=== PATIENT | male | born 1985 | race Asian ===

== ENCOUNTER 2024-09-07 08:53 | Outpatient (REF) | payer OTHER, SELFPAY ==
[2024-09-07 14:21] LABS: Influenza A PCR NEGATIVE (Negative); Influenza B PCR NEGATIVE (Negative); Resp Syncy Virus RNA Qual PCR NEGATIVE (Negative); SARS COV2 PCR INHOUSE NEGATIVE (Negative)
== END 2024-09-07 08:54 | disposition home or self-care (01) ==
LOC: HO.LAB 08:53
PROVIDERS: Visit Provider Nurse Practitioner Family
DX: J06.9 Acute upper respiratory infection, unspecified (principal)
CPT/HCPCS: 0241U

== ENCOUNTER 2024-09-07 08:53 | Outpatient (AMB) | payer OTHER, SELFPAY ==
--- NOTE | 2024-09-07 10:05 | MHC.OFFWIV ---
Intake Vital Signs 09/07/24 10:12 Weight 186 lb 8 oz BP 112/80 Blood Pressure Location Rt brachial Position Sitting Pulse 78 Pulse Source Pulse Oximeter Temp 98.0 F Temp Source Oral Pulse Oximetry (%) 98 Oxygen Delivery Method Room Air Intake Visit Reasons: EP-hermann.,cough,teeth pain,[id number] Intake Note: Patient here for cough, congestion and teeth pain that has been present for about 3 days. Patient Tobacco Use Status: Never used Tobacco Allergies No Known Allergies Allergy (Verified 09/07/24 10:06) Do you need a note to return to daycare/school/sports/work: No HPI HPI Comments History of Present Illness Details co39 y/o male patient who presents to the walk in clinic with c/o cough, fevers and body chills for 3 days now. Reports fever of 100.1 F at home Friday. His entire family sick with similar symptoms. [facility] Medical History (Updated 09/07/24 @ 10:27 by Esther Reynolds NP) Cough Acute respiratory disease Social History Patient Tobacco Use Status: Never used Tobacco Review of Systems Const All systems reviewed & are unremarkable except as noted in HPI and below Physical Exam Vital Signs: Last Vital Signs Temp 98.0 F 09/07/24 10:12 Pulse 78 09/07/24 10:12 BP 112/80 09/07/24 10:12 Pulse Ox 98 09/07/24 10:12 Oxygen Delivery Method Room Air 09/07/24 10:12 Const General: cooperative and no acute distress Nutritional Appearance: thin Orientation/consciousness: patient oriented x3 HEENT Head: Yes normocephalic Ears: external ears normal and TM abnormal with fluid behind the TM General nose exam: Normal external nose present and Nasal discharge present Face and sinus: Yes sinuses nontender Mouth: moist mucous membranes Throat: Yes tonsils normal and Yes uvula midline Resp Effort & Inspection: normal respiratory effort and able to speak in complete sentences Auscultation: clear to auscultation bilaterally, no crackles, no rales, no rhonchi and no wheezes Cardio Heart sounds: S1 normal heart sound present and S2 normal heart sound present Neuro General: patient oriented x3 Assessment & Plan Assessment & Plan (1) Acute respiratory disease: Code(s): J06.9 - Acute upper respiratory infection, unspecified Plan: Ordered SARs Acetaminophen for pain relief Hydrate and rest well OTC cold remedies RTC if not better. Orders: Orders SARS-CoV2/FLU/RSV Today J06.9 - Acute upper respiratory infection, unspecified Medications: New benzonatate 100 mg PO TID 60 caps 0RF J06.9 - Acute upper respiratory infection, unspecified, R05.9 - Cough, unspecified acetaminophen 1,000 mg (2 x 500 mg) PO Q6H PRN 30 caps 0RF pain J06.9 - Acute upper respiratory infection, unspecified Coding Level of Care Code New Pt Level 3 (09618) Diagnoses Acute respiratory disease J06.9 Time Spent (min) 15
[2024-09-07 10:12] VITALS: BP 112/80; PULSE 78; TEMP 36.7; O2SAT 98
== END 2024-09-07 10:46 | disposition home or self-care (01) ==
PROVIDERS: Visit Provider Nurse Practitioner Family
DX: J06.9 Acute upper respiratory infection, unspecified (principal)

== ENCOUNTER 2024-12-24 08:08 | Outpatient (AMB) | payer OTHER, SELFPAY ==
[2024-12-24 08:13] VITALS: BP 130/80; PULSE 90; TEMP 36.8; O2SAT 98
--- NOTE | 2024-12-24 08:13 | AM.OFFWIN_ITS ---
Intake Vital Signs 12/24/24 08:13 Weight 184 lb BP 130/80 Blood Pressure Location Rt brachial Position Sitting Pulse 90 Pulse Source Pulse Oximeter Temp 98.2 F Temp Source Oral Pulse Oximetry (%) 98 Oxygen Delivery Method Room Air Intake Visit Reasons: EP Flu+ friday, sinus pain Intake Note: Patient here for cough, sinus pain and congestion. pt states he tested positive for the flu on friday and was not prescribed tamiflu. Patient Tobacco Use Status: Never used Tobacco Allergies No Known Allergies Allergy (Verified 12/24/24 08:21) Do you need a note to return to daycare/school/sports/work: Yes HPI HPI Comments History of Present Illness Details History - The patient is a 39-year-old male pres enting with nasal congestion and cough. - Diagnosed with Flu A on 12/20 - Initial fever was self-resolving, repl aced by nasal congestion and productive cough. - Nasal discharge includes blood and bro wn mucus, indicative of drying nasal passages. - Sinus examination reveals mild headach e upon pressure application. - Notable absence of shortness of breath , asthma, COPD, or smoking or vaping history. - Continues to experience symptoms despi te initial nasal spray use; advised to use saline nasal spray for dryness. Physical Exam General: Cooperative, healthy appearing, comfortable and no acute distress Orientation/consciousness: Patient oriented x3 Limitations: No limitations Head: Normal to inspection Ears: Hearing grossly normal bilaterally, external ears normal and TM's normal bilaterally Nose: Normal external nose present, Normal nares present and Nasal discharge present, scant blood noted Face and sinus: Normal facial exam and Sinuses tender Mouth: Normal oral and palatal mucosa present and moist mucous membranes Throat: Yes tonsils normal, Yes uvula midline. Posterior oropharynx erythema Eyes: Appearance normal, both eyes and all related structures Neck: Normal visual inspection Respiratory: Clear to auscultation bilaterally. Normal respiratory effort, able to speak in complete sentences, Actively coughing, no respiratory distress, not tachypneic, no tripod positioning and no use of accessory muscles Cardiovascular: Regular rate and rhythm. Normal S1 and S2 Skin: No rashes or lesions noted Neuro: Patient oriented x3 Extremities: Normal to inspection and Yes no clubbing, cyanosis or edema PFSH Medical History (Updated 12/24/24 @ 08:40 by Angella Ocampo PA-C) Cough Acute respiratory disease Social History Patient Tobacco Use Status: Never used Tobacco Review of Systems Const All systems reviewed & are unremarkable except as noted in HPI and below Physical Exam Vital Signs: Last Vital Signs Temp 98.2 F 12/24/24 08:13 Pulse 90 12/24/24 08:13 BP 130/80 12/24/24 08:13 Pulse Ox 98 12/24/24 08:13 Oxygen Delivery Method Room Air 12/24/24 08:13 Assessment & Plan Assessment & Plan (1) Influenza A: Code(s): J10.1 - Influenza due to other identified influenza virus with other respiratory manifestations Plan: VSS, pt well appearing and PE unremarkable. Treatment included using saline nasal spray to alleviate nasal dryness. The incorporation of Sudafed and cons ideration of Flonase are recommended to manage nasal and sinus symptoms. Hydration and mucolytics like Mucinex may prove beneficial in reducing mucus buildup. Adjustments to nasal spray use are suggested to avoid excessive drying, and specific techniques for Flonase application aim to enhance effectiveness. Non-prescription medication like Tylenol and Ibuprofen is advised for pain and fever management. A humidifier usage and prescribed cough suppressants aim to improve symptoms, especially nocturnal discomfort. Patient was informed and verbally consented to the use of an ambient scribe for clinic note documentation during this visit Medications: New fluticasone propionate 50 mcg/actuation administer into each nostril 1 spray intranasal Q12H 16 grams 0RF benzonatate 200 mg PO BEDTIME PRN 10 caps 0RF cough Coding Level of Care Code Est Pt Level 3 (69487) Diagnoses Influenza A J10.1
--- OUTSIDE RECORDS SUMMARY | 2024-12-24 08:17 | XMS_ITS | Clinical Summary ---
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 Active ibuprofen (ADVIL,MOTRIN) 800 mg tablet Take 1 Tab by mouth every 8 hours as needed for Pain. 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 Dyspepsia 09/23/2012 Acne 10/11/2008 Immunizations Name Administration Dates Next Due Influenza trivalent, 0.5mL, preservative free (Fluarix; FluLaval; Fluzone) ages 6mo and older (Afluria) 3 years and older 09/10/2020,08/20/2017 Moderna SARS-CoV-2 COVID-19, mRNA, LNP-S, preservative free 03/05/2021,02/05/2021 Tdap Tetanus diptheria acell ular pertussis (Boostrix; Adacel) 7yo and older 01/13/2017 Surgical History Surgery Date Site/Laterality Comments OTHER SURGICAL HISTORY PROCEDURE: DENIES PREVIOUS SURGERY Family History Medical History Relation Name Comments No Known Problems Brother Hypertension Father Other: pancreatic cancer Father Other: good health Mother Heart attack Paternal Grandmother at age 50' Hypertension Paternal Grandmother Relation Name Status Comments Brother Alive Father Alive Maternal Grandfather Alive Maternal Grandmother (Age 86) Mother Alive Paternal Grandfather Alive cad, ca bg in 60 s Paternal Grandmother Social History Tobacco Use Types Packs/Day Years Used Date Smoking Tobacco: Never Smokeless Tobacco: Never Alcohol Use Standard Drinks/Week Comments Yes 1.7 (1 standard drink = 0.6 oz p ure alcohol) Sex and Gender Information Value Date Recorded Sex Assigned at Not on file Legal Sex Male 8:01 PM EST Gender Identity Not on file Sexual Orientation Not on file Obstetrics History Last Filed Vital Signs Vital Sign Reading Time Taken Comments Blood Pressure 110/60 06/11/2023 1:52 PM EDT Pulse 60 06/11/2023 1:52 PM EDT Temperature - - Respiratory Rate - - Oxygen Saturation - - Inhaled Oxygen Concentration - - Weight 83.3 kg (183 lb 9.6 oz) 06/11/2023 1:52 P M EDT Height 198.1 cm (6' 6 ) 06/11/2023 1:52 PM EDT Body Mass Index 21.22 06/11/2023 1:52 PM EDT Plan of Treatment Upcoming Encounters Date Type Department Care Team (Late st Contact Info) Description 06/07/2025 9:00 AM EDT Office Visit Adult Medicine [facility] [address] [place] [address] Nic Swift MD [address] [place] [address] Health Maintenance Due Date Last Done Comments Hepatitis B Vaccines (1 of 3 - 19+ 3-dose series) 2003 Cholesterol Screening (Lipid Panel) 09/28/2022 Depression Screening 09/28/2022 HIV Screening 09/28/2022 Hepatitis C Screening 09/28/2022 Social Influencers of Health Screening 09/28/2022 COVID-19 Vaccine (3 - 2023-2 5 season) 2024 03/05/2021, 02/05/2021 Influenza Vaccine (#1) 2024 , 08/20/2017 DTaP,Tdap,and Td Vaccines (2 - Td or Tdap) 01/13/2027 01/13/2017 HIB Vaccines Aged Out No longer eligi ble based on patient's age to complete this topic HPV Vaccines Aged Out No longer eligi ble based on patient's age to complete this topic Hepatitis A Vaccines Aged Out No long er eligible based on patient's age to complete this topic IPV Vaccines Aged Out No longer eligi ble based on patient's age to complete this topic MMR Vaccines Aged Out No longer eligi ble based on patient's age to complete this topic Meningococcal ACWY Vaccine Aged Out N o longer eligible based on patient's age to complete this topic Meningococcal B Vacine Aged Out No lo nger eligible based on patient's age to complete this topic Pneumococcal Vaccine: Pediatrics (0 to 5 Years) and At-Risk Patients (6 to 64 Years) Aged Out No longer eligible b ased on patient's age to complete this topic RSV Immunization Patients Under 20 months Aged Out No longer eligible b ased on patient's age to complete this topic Varicella Vaccines Aged Out No longer eligible based on patient's age to complete this topic Care Teams Body Work Auto Trimmer Relationship Specialty Start Date End Date Nic Swift MD [address] [place] [address] PCP - General Internal Medicine 06/16/15
== END 2024-12-24 08:46 | disposition home or self-care (01) ==
PROVIDERS: PCP Internal Medicine; Visit Provider Physician Assistant
DX: J10.1 Influenza due to other identified influenza virus with other respiratory manifestations (principal)